=== PATIENT | male | born 2000 | race African-American/Black ===

== ENCOUNTER 2021-11-12 22:00 | Emergency (ER) | payer BC, OTHER ==
[~2021-11-12] VITALS: Ht 165.1 cm; Wt 84.5 kg
[2021-11-12 22:31] VITALS: BP 142/75
[2021-11-13] MEDS ORDERED: IBUP-2030 MT (02:28)
[2021-11-13] MEDS ORDERED: CYCL5TAB MT (02:28)
== END 2021-11-13 03:17 | disposition home or self-care (01) ==
LOC: ER 22:00
DX: S00.83XA Contusion of other part of head, initial encounter (principal); S33.5XXA Sprain of ligaments of lumbar spine, initial encounter; Z88.8 Allergy status to other drugs, medicaments and biological substances; W17.89XA Other fall from one level to another, initial encounter; Y93.89 Activity, other specified; Y92.89 Other specified places as the place of occurrence of the external cause; Y99.8 Other external cause status
CPT/HCPCS: 99281